=== PATIENT | female | born 1980 | race Caucasian/White ===

== ENCOUNTER 2024-05-03 07:04 | Emergency (ER) | payer BC, OTHER ==
[~2024-05-03] VITALS: Ht 170.2 cm; Wt 91.0 kg
[2024-05-03 07:38] VITALS: BP 117/83; PULSE 113; RESP 16; TEMP 98.4; O2SAT 97
[2024-05-03] MEDS: SODIUM CHLORIDE 0.9% 1,000 ML IV ONE (08:12)
[2024-05-03 08:22] LABS: Urine Bacteria FEW /hpf (None Seen); Urine Blood TRACE /uL (Negative); Urine Clarity Turbid (Clear); Urine Color Yellow (Yellow); Urine Mucus FEW (None Seen); Urine Protein, UAD 1+ (Negative); Urine Specific Gravity 1.029 (1.001-1.035); Urine Urobilinogen 2 mg/dL (Negative); Urine WBC 11 /hpf (0 - 5)
[2024-05-03] MEDS: KETOROLAC TROMETH 30 MG/ML 1ML VIAL IV ONE (09:03)
[2024-05-03] MEDS: cefTRIAXone 1GM/50ML D5W 50 ML IV ONE (09:03)
[2024-05-03 09:05] LABS: Chloride 111 mmol/L (98-107); Potassium 3.8 mmol/L (3.5-5.1); Sodium 139 mmol/L (136-145)
[2024-05-03 09:06] LABS: Anion Gap 7 (5-15); Basophils # (auto) 0 10 ^3/uL (0-0.2); Basophils % (auto) 0.3 % (0.0-2.0); Calcium 8.4 mg/dL (8.7-10.4); Carbon Dioxide 21 mmol/L (20-30); Eosinophils # (auto) 0 10 ^3/uL (0-0.8); Eosinophils % (auto) 0.2 % (0.0-7.0); Hematocrit 40.9 % (36.0-46.0); Lymphocytes # (auto) 0.9 10 ^3/uL (0.4-5.4); Mean Corpuscular Hemoglobin 32.3 pg (28.0-32.0); Mean Corpuscular Hgb Conc. 34.2 g/dL (32.0-36.0); Mean Corpuscular Volume 94.4 fL (80.0-100.0); Monocytes # (auto) 0.4 10 ^3/uL (0-1.3); Monocytes % (auto) 6.4 % (0.0-12.0); Neutrophils # (auto) 5.5 10 ^3/uL (1.6-8.6); Neutrophils % (auto) 80.1 % (37.0-80.0); Platelet Count (auto) 205 10^3/uL (140-450); Red Blood Cells 4.33 10^6/uL (4.0-5.20); Red Cell Distribution Width 14.3 % (11.8-14.3); White Blood Cell 6.9 10^3/uL (4.4-10.8)
[2024-05-03 09:11] LABS: BUN/Creatinine Ratio 13.7 (10.0-20.0); Blood Urea Nitrogen 10 mg/dL (9-23); Glucose 86 mg/dL (74-106)
[2024-05-03] MEDS ORDERED: TRAM-626 PO (09:35)
[2024-05-03] MEDS ORDERED: TAMS-35 PO (09:35)
[2024-05-03] MEDS ORDERED: ZOFR4T PO (09:35)
== END 2024-05-03 09:34 | disposition home or self-care (01) ==
LOC: EEVIPCON 07:04 → ER 07:04
DX: K80.20 Calculus of gallbladder without cholecystitis without obstruction (principal); N20.0 Calculus of kidney; N39.0 Urinary tract infection, site not specified; Z79.899 Other long term (current) drug therapy
CPT/HCPCS: 36415; 74176; 80048; 81001; 81025; 85025; 96361; 96365; 96375; 99285; J0696; J1885; J7030

== ENCOUNTER 2024-05-07 10:35 | Inpatient (IN) | payer BC ==
[~2024-05-07] VITALS: Ht 170.2 cm; Wt 95.2 kg
[~2024-05-07 10:35] MED LIST: TAMS-35 PO; TRAM-626 PO; ZOFR4T PO
[2024-05-07] MEDS: ONDANSETRON HCL 4 MG/2 ML VIAL IV ONE (11:17)
[2024-05-07] MEDS: SODIUM CHLORIDE 0.9% 1,000 ML IVB ONE (11:18)
[2024-05-07 11:30] VITALS: PULSE 82; RESP 16; O2SAT 100
[2024-05-07 12:14] LABS: Basophils # (auto) 0.1 10 ^3/uL (0-0.2); Basophils % (auto) 0.8 % (0.0-2.0); Eosinophils # (auto) 0.1 10 ^3/uL (0-0.8); Eosinophils % (auto) 0.8 % (0.0-7.0); Hematocrit 44.4 % (36.0-46.0); Hemoglobin 15.5 g/dL (12.2-16.2); Lymphocytes # (auto) 3.2 10 ^3/uL (0.4-5.4); Lymphocytes % (auto) 37.3 % (10.0-50.0); Mean Corpuscular Hemoglobin 31.7 pg (28.0-32.0); Mean Corpuscular Hgb Conc. 34.8 g/dL (32.0-36.0); Mean Corpuscular Volume 90.9 fL (80.0-100.0); Monocytes # (auto) 0.7 10 ^3/uL (0-1.3); Monocytes % (auto) 8.4 % (0.0-12.0); Neutrophils # (auto) 4.6 10 ^3/uL (1.6-8.6); Neutrophils % (auto) 52.7 % (37.0-80.0); Nucleated Red Blood Cells % 0.1 %; Platelet Count (auto) 259 10^3/uL (140-450); Red Blood Cells 4.89 10^6/uL (4.0-5.20); Red Cell Distribution Width 14.2 % (11.8-14.3); White Blood Cell 8.7 10^3/uL (4.4-10.8)
[2024-05-07] MEDS: PANTOPRAZOLE 40 MG/10 ML VIAL INJ IV ONE (12:30)
[2024-05-07] MEDS: MORPHINE SULFATE 4 MG/ML SYR/VIAL IV ONE (12:30)
[2024-05-07 12:31] LABS: Alanine Aminotransferase 18 U/L (7-40); Alkaline Phosphatase 64 U/L (46-116); Anion Gap 7 (5-15); Aspartate Aminotransferase 28 U/L (13-40); BUN/Creatinine Ratio 9.2 (10.0-20.0); Blood Urea Nitrogen 8 mg/dL (9-23); Calcium 9.2 mg/dL (8.7-10.4); Carbon Dioxide 23 mmol/L (20-30); Chloride 108 mmol/L (98-107); Glucose 77 mg/dL (74-106); Lipase 59 U/L (12-53); Potassium 3.6 mmol/L (3.5-5.1); Sodium 138 mmol/L (136-145)
[2024-05-07 12:32] LABS: Bilirubin, Total 0.4 mg/dL (0.2-1.0); Total Protein 8.2 g/dL (5.7-8.2)
[2024-05-07 12:34] LABS: Albumin 4.9 g/dL (3.2-4.8)
[2024-05-07 12:39] LABS: Platelet Estimate Adequate
[2024-05-07 13:31] LABS: Urine Bacteria FEW /hpf (None Seen); Urine Blood 1+ /uL (Negative); Urine Clarity Turbid (Clear); Urine Color Colorless (Yellow); Urine Protein, UAD Negative (Negative); Urine Specific Gravity 1.006 (1.001-1.035); Urine Urobilinogen Normal (Negative); Urine WBC 3 /hpf (0 - 5)
[2024-05-07] MEDS: KETOROLAC TROMETH 30 MG/ML 1ML VIAL IV ONE (15:06)
[2024-05-07] MEDS ORDERED: NITROGLYCERIN 0.4 MG SL TAB SL PRN (16:45)
[2024-05-07] MEDS: PIPERACILLIN-TAZOB 3.375GM 100 ML IV ONE (16:58)
[2024-05-07] MEDS: SODIUM CHLORIDE 0.9% 1,000 ML IV SCH (16:58)
[2024-05-07] MEDS: MORPHINE SULFATE INJ 2 MG/ml SYRG IV PRN (17:57)
[2024-05-07 18:02] LABS: INR 1.04 (0.9-1.15)
[2024-05-07 18:46] VITALS: BP 160/92; PULSE 69; RESP 17; TEMP 98.1; O2SAT 100
[2024-05-07 19:04] VITALS: BP 160/92; PULSE 85; RESP 17; TEMP 98.5; O2SAT 100
[2024-05-07 19:07] VITALS: BP 144/74; PULSE 73; PULSE 77; RESP 18; TEMP 98.5; O2SAT 100
[2024-05-07 20:00] VITALS: PULSE 73; RESP 18
[2024-05-07 21:00] VITALS: BP 148/89; PULSE 78; RESP 16; TEMP 97.8; O2SAT 98
[2024-05-08] VITALS (8 sets, daily range): BP systolic 107–143; BP diastolic 68–81; PULSE 73–91; RESP 14–21; TEMP 97.3–98.8; O2SAT 96–100
[2024-05-08] MEDS: PIPERACILLIN-TAZOB 3.375GM 100 ML IV SCH (00:25)
[2024-05-08] MEDS: HYDROmorphone HCL 2 MG/ML VL/or syr IV PRN (01:08)
[2024-05-08 05:47] LABS: Basophils # (auto) 0 10 ^3/uL (0-0.2); Basophils % (auto) 0.4 % (0.0-2.0); Eosinophils # (auto) 0.1 10 ^3/uL (0-0.8); Eosinophils % (auto) 1.5 % (0.0-7.0); Hematocrit 37.4 % (36.0-46.0); Hemoglobin 12.9 g/dL (12.2-16.2); Lymphocytes # (auto) 2.8 10 ^3/uL (0.4-5.4); Lymphocytes % (auto) 41.2 % (10.0-50.0); Mean Corpuscular Hemoglobin 31.5 pg (28.0-32.0); Mean Corpuscular Hgb Conc. 34.5 g/dL (32.0-36.0); Mean Corpuscular Volume 91.3 fL (80.0-100.0); Monocytes # (auto) 0.6 10 ^3/uL (0-1.3); Monocytes % (auto) 8.5 % (0.0-12.0); Neutrophils # (auto) 3.3 10 ^3/uL (1.6-8.6); Neutrophils % (auto) 48.4 % (37.0-80.0); Platelet Count (auto) 238 10^3/uL (140-450); Red Cell Distribution Width 13.9 % (11.8-14.3); White Blood Cell 6.9 10^3/uL (4.4-10.8)
[2024-05-08 06:00] LABS: Alanine Aminotransferase 16 U/L (7-40); Albumin 3.8 g/dL (3.2-4.8); Alkaline Phosphatase 45 U/L (46-116); Anion Gap 6 (5-15); Aspartate Aminotransferase 19 U/L (13-40); BUN/Creatinine Ratio 9.2 (10.0-20.0); Blood Urea Nitrogen 7 mg/dL (9-23); Calcium 8.8 mg/dL (8.7-10.4); Carbon Dioxide 24 mmol/L (20-30); Chloride 107 mmol/L (98-107); Glucose 82 mg/dL (74-106); Potassium 3.5 mmol/L (3.5-5.1); Sodium 137 mmol/L (136-145)
[2024-05-08 06:01] LABS: Bilirubin, Total 0.6 mg/dL (0.2-1.0); Total Protein 6.5 g/dL (5.7-8.2)
[2024-05-08] MEDS: ONDANSETRON HCL 4 MG/2 ML VIAL IV PRN (08:37)
[2024-05-08 09:37] LABS: Hepatitis B Surface Antigen Negative (Negative)
[2024-05-08 09:58] LABS: Hepatitis C Antibody Negative (Negative)
[2024-05-08 11:19] LABS: Free T3 3.4 pg/mL (2.3-4.2); Free T4 (Free Thyroxine) 1.18 ng/dL (0.89-1.76)
[2024-05-08] MEDS: PANTOPRAZOLE 40 MG/10 ML VIAL INJ IV ONE (12:34)
[2024-05-08] MEDS: LACTATED RINGER'S 1,000 ML IV SCH (17:00)
[2024-05-08] MEDS: CYANOCOBALAMIN (B-12) 1000 MCG/1 ML VIAL IM ONE (17:01)
[2024-05-08] MEDS: ERGOCALCIFEROL 50,000 UNIT(1.25MG) CAP PO SCH (17:01)
[2024-05-09] VITALS (8 sets, daily range): BP systolic 115–135; BP diastolic 73–84; PULSE 78–93; RESP 17–20; TEMP 97.9–98.7; O2SAT 95–98
[2024-05-09 04:28] LABS: Amphetamine Screen, Urine Neg (NEGATIVE); Barbiturate Scree,Urine Neg (NEGATIVE); Benzodiazephine Screen, Urine Neg (NEGATIVE); Cocaine Screen, Urine Neg (NEGATIVE); Opiate Scree,Urine Pos (NEGATIVE)
[2024-05-09 04:29] LABS: Cannabinoid Screen, Urine Neg (NEGATIVE); Phencyclidine Screen, Urine Neg (NEGATIVE)
[2024-05-09 06:29] LABS: Basophils # (auto) 0 10 ^3/uL (0-0.2); Basophils % (auto) 0.6 % (0.0-2.0); Eosinophils # (auto) 0.1 10 ^3/uL (0-0.8); Eosinophils % (auto) 2.2 % (0.0-7.0); Hematocrit 36.4 % (36.0-46.0); Hemoglobin 13.1 g/dL (12.2-16.2); Lymphocytes # (auto) 2.7 10 ^3/uL (0.4-5.4); Lymphocytes % (auto) 40.6 % (10.0-50.0); Mean Corpuscular Hemoglobin 32.5 pg (28.0-32.0); Mean Corpuscular Hgb Conc. 35.9 g/dL (32.0-36.0); Mean Corpuscular Volume 90.8 fL (80.0-100.0); Monocytes # (auto) 0.6 10 ^3/uL (0-1.3); Monocytes % (auto) 9.7 % (0.0-12.0); Neutrophils # (auto) 3.1 10 ^3/uL (1.6-8.6); Neutrophils % (auto) 46.9 % (37.0-80.0); Nucleated Red Blood Cells % 0.3 %; Platelet Count (auto) 253 10^3/uL (140-450); Red Blood Cells 4.02 10^6/uL (4.0-5.20); Red Cell Distribution Width 13.7 % (11.8-14.3); White Blood Cell 6.6 10^3/uL (4.4-10.8)
[2024-05-09 06:51] LABS: Chloride 107 mmol/L (98-107); Sodium 138 mmol/L (136-145)
[2024-05-09 06:52] LABS: Anion Gap 6 (5-15); Calcium 9.2 mg/dL (8.7-10.4); Carbon Dioxide 25 mmol/L (20-30)
[2024-05-09 06:57] LABS: Glucose 92 mg/dL (74-106)
[2024-05-09 06:59] LABS: BUN/Creatinine Ratio 5.9 (10.0-20.0); Blood Urea Nitrogen < 5 mg/dL (9-23)
[2024-05-09] MEDS: PANTOPRAZOLE 40 MG/10 ML VIAL INJ IV SCH (10:27)
[2024-05-09] MEDS: LACTULOSE 20Gm/30ML SOLN PO SCH (10:57)
[2024-05-09] MEDS: cefTRIAXone 1GM/50ML D5W 50 ML IV ONE (12:15)
[2024-05-10] VITALS (8 sets, daily range): BP systolic 110–129; BP diastolic 72–81; PULSE 75–85; RESP 16–18; TEMP 98.2–98.8; O2SAT 94–97
[2024-05-10 06:25] LABS: Basophils # (auto) 0.1 10 ^3/uL (0-0.2); Basophils % (auto) 0.6 % (0.0-2.0); Eosinophils # (auto) 0.1 10 ^3/uL (0-0.8); Eosinophils % (auto) 1.3 % (0.0-7.0); Hematocrit 39.7 % (36.0-46.0); Lymphocytes # (auto) 3.8 10 ^3/uL (0.4-5.4); Lymphocytes % (auto) 42.9 % (10.0-50.0); Mean Corpuscular Hemoglobin 32.2 pg (28.0-32.0); Mean Corpuscular Hgb Conc. 35.3 g/dL (32.0-36.0); Mean Corpuscular Volume 91.2 fL (80.0-100.0); Monocytes # (auto) 0.7 10 ^3/uL (0-1.3); Monocytes % (auto) 7.3 % (0.0-12.0); Neutrophils # (auto) 4.3 10 ^3/uL (1.6-8.6); Neutrophils % (auto) 47.9 % (37.0-80.0); Nucleated Red Blood Cells % 0.2 %; Platelet Count (auto) 295 10^3/uL (140-450); Red Blood Cells 4.35 10^6/uL (4.0-5.20); White Blood Cell 8.9 10^3/uL (4.4-10.8)
[2024-05-10 06:27] LABS: Anion Gap 7 (5-15); Carbon Dioxide 22 mmol/L (20-30); Chloride 109 mmol/L (98-107); Potassium 3.8 mmol/L (3.5-5.1); Sodium 138 mmol/L (136-145)
[2024-05-10 06:28] LABS: Calcium 9.6 mg/dL (8.7-10.4)
[2024-05-10 06:33] LABS: Glucose 88 mg/dL (74-106)
[2024-05-10 06:34] LABS: BUN/Creatinine Ratio 6.3 (10.0-20.0); Blood Urea Nitrogen < 5 mg/dL (9-23)
[2024-05-10] MEDS ORDERED: fentaNYL CITRATE 100 MCG/2 ML VL ONE (08:14)
[2024-05-10] MEDS ORDERED: MEPERIDINE HCL (25 MG/ML) 1ML VIAL ONE (08:14)
[2024-05-10] MEDS ORDERED: MIDAZOLAM HCL 2MG/2ML 2ml VIAL (1mg/ml) ONE (08:14)
[2024-05-10] MEDS ORDERED: PROPOFOL 10 MG/ML 20 ML IV ONE (08:15)
[2024-05-10] MEDS ORDERED: DexAMETHasone SOD PHOS 10MG/1ML VIAL INJ ONE (08:15)
[2024-05-10] MEDS ORDERED: hydrALAZINE HCL 20 MG/ML VL IV PRN (08:45)
[2024-05-10] MEDS ORDERED: MORPHINE SULFATE 4 MG/ML SYR/VIAL IV PRN (08:45)
[2024-05-10] MEDS ORDERED: ePHEDrine SULFATE 50 MG/ML AMP IV PRN (08:45)
[2024-05-10] MEDS ORDERED: MIDAZOLAM HCL 2MG/2ML 2ml VIAL (1mg/ml) IV PRN (08:45)
[2024-05-10] MEDS: LIDOCAINE W/ EPINEPHRINE 1% 20ML VIAL ONE (09:06)
[2024-05-10] MEDS ORDERED: SUGAMMADEX 200mg/2ml Vial (100MG/ML) IV ONE (09:12)
[2024-05-10] MEDS: HYDROmorphone HCL 2 MG/ML VL/or syr IV PRN (09:37)
[2024-05-10] MEDS: SUCCINYLCHOLINE CHLORIDE 20 MG/ML 10ML VIAL IV ONE (09:43)
[2024-05-10] MEDS: BUPIVACAINE 0.25% INJ 50ML VIAL ONE (09:44)
[2024-05-10] MEDS: ceFAZolin 2 GM/D5W50ml 50 ML IV ONE (09:44)
[2024-05-10] MEDS: cefTRIAXone 1GM/50ML D5W 50 ML IV SCH (12:08)
[2024-05-10] MEDS: KETOROLAC TROMETH 30 MG/ML 1ML VIAL IV ONE (12:08)
[2024-05-10] MEDS: ONDANSETRON HCL 4 MG/2 ML VIAL IV ONE (12:30)
[2024-05-10] MEDS: metroNIDAZOLE 500MG/100ML 100 ML IV SCH (14:56)
[2024-05-11 01:00] VITALS: BP 116/71; PULSE 85; RESP 15; TEMP 98.4; O2SAT 95
[2024-05-11 05:00] VITALS: BP 113/68; PULSE 89; RESP 18; TEMP 98.2; O2SAT 97
[2024-05-11] MEDS: DOCUSATE SOD 100 MG CAP PO PRN (05:23)
[2024-05-11 08:59] VITALS: BP 98/55; PULSE 87; RESP 19; TEMP 98; O2SAT 100
[2024-05-11 09:25] LABS: Basophils # (auto) 0 10 ^3/uL (0-0.2); Basophils % (auto) 0.4 % (0.0-2.0); Eosinophils # (auto) 0 10 ^3/uL (0-0.8); Eosinophils % (auto) 0.1 % (0.0-7.0); Hematocrit 41.3 % (36.0-46.0); Hemoglobin 14.2 g/dL (12.2-16.2); Lymphocytes # (auto) 3.1 10 ^3/uL (0.4-5.4); Lymphocytes % (auto) 25.1 % (10.0-50.0); Mean Corpuscular Hemoglobin 31.5 pg (28.0-32.0); Mean Corpuscular Hgb Conc. 34.4 g/dL (32.0-36.0); Mean Corpuscular Volume 91.6 fL (80.0-100.0); Monocytes # (auto) 0.8 10 ^3/uL (0-1.3); Monocytes % (auto) 6.1 % (0.0-12.0); Neutrophils # (auto) 8.6 10 ^3/uL (1.6-8.6); Neutrophils % (auto) 68.3 % (37.0-80.0); Platelet Count (auto) 341 10^3/uL (140-450); Red Blood Cells 4.51 10^6/uL (4.0-5.20); Red Cell Distribution Width 13.7 % (11.8-14.3); White Blood Cell 12.6 10^3/uL (4.4-10.8)
[2024-05-11 09:30] LABS: Chloride 105 mmol/L (98-107); Potassium 3.5 mmol/L (3.5-5.1); Sodium 137 mmol/L (136-145)
[2024-05-11 09:31] LABS: Anion Gap 7 (5-15); Carbon Dioxide 25 mmol/L (20-30)
[2024-05-11 09:32] LABS: Calcium 9.8 mg/dL (8.7-10.4)
[2024-05-11 09:36] LABS: BUN/Creatinine Ratio 6.9 (10.0-20.0); Blood Urea Nitrogen 6 mg/dL (9-23); Glucose 97 mg/dL (74-106)
[2024-05-11 09:39] LABS: Bilirubin, Total 0.6 mg/dL (0.2-1.0)
[2024-05-11] MEDS ORDERED: ACETAMINOPHEN 325 MG TAB PO PRN (10:15)
[2024-05-11] MEDS: POTASSIUM CHL 20 Meq TABLET PO ONE (12:10)
[2024-05-11 13:00] VITALS: BP 115/72; PULSE 78; RESP 17; TEMP 98.2; O2SAT 98
[2024-05-11] MEDS ORDERED: ACET-1882 PO (14:13)
[2024-05-11] MEDS ORDERED: ERGO1CAP23 PO (14:13)
[2024-05-11] MEDS ORDERED: MET500T PO (14:13)
[2024-05-11 17:00] VITALS: BP 123/82; PULSE 86; RESP 18; TEMP 98; O2SAT 99
[2024-05-11] MEDS ORDERED: ROCURONIUM 10MG/ML 10ML VIAL IV ONE (17:29)
== END 2024-05-11 17:30 | disposition home or self-care (01) | DRG 418 ==
LOC: EEVIPCON 10:35 → ER 10:35 → OVERFLOW 16:38 → TELE-EAST 18:33 → EAST 20:39
PROVIDERS: ADMIT Internal Medicine Pulmonary Disease; ATTEND Internal Medicine Pulmonary Disease
PROC: 0FT44ZZ Resection of Gallbladder, Percutaneous Endoscopic Approach (ICD-10-PCS; principal; 2024-05-10 08:18)
DX: K80.10 Calculus of gallbladder with chronic cholecystitis without obstruction (principal); N10 Acute pyelonephritis; N20.0 Calculus of kidney; K57.30 Diverticulosis of large intestine without perforation or abscess without bleeding; E07.81 Sick-euthyroid syndrome; E66.01 Morbid (severe) obesity due to excess calories; E03.8 Other specified hypothyroidism; Z68.32 Body mass index [BMI] 32.0-32.9, adult; Z82.49 Family history of ischemic heart disease and other diseases of the circulatory system; Z83.3 Family history of diabetes mellitus; Z88.8 Allergy status to other drugs, medicaments and biological substances
CPT/HCPCS: 36415; 71045; 74181; 76705; 80048; 80053; 80307; 81001; 82247; 82306; 82607; 83036; 83690; 83735; 84439; 84443; 84481; 84702; 85025; 85610; 86803; 86850; 86900; 86901; 87086; 87340; 96374; 96375; G0378; J0330; J1100; J1885; J2250; J2405; J2470; J2543; J2704; J3490

== ENCOUNTER 2025-01-31 12:51 | Emergency (ER) | payer BC ==
[~2025-01-31] VITALS: Ht 170.2 cm; Wt 70.0 kg
[~2025-01-31 12:51] MED LIST changes: +ACET-1882 PO; +ERGO1CAP23 PO; +MET500T PO
--- NOTE | 2025-01-31 13:28 | ED.PDOC ---
GI ASSESSMENT HPI Comments A 44 year old female with no past medical history presents to the ED with a chief complaint of diarrhea onset today (01/31/25). Patient states she began experienced generalized body aches last night as well as nasal congestion, took Tylenol around 20:00. She woke up this morning experiencing nausea, is now resolved, and diarrhea, last bowel movement was about 20 minutes ago. Patient's co-workers have also been experiencing similar symptoms. No other symptoms or modifying factors present at this time. Denies recent antibiotics nor hospitalization Denies blood or black stools Denies fevers chills night sweats Denies cough Denies rashes Denies abdominal pain vomiting Denies recent travel Denies dysuria, hematuria Urinating normally Chief Complaint: Flu like Time Seen by MD: 13:10 Primary Care Provider: Deana MILLER Reviewed Notes: Nurses Notes, Medications, Allergies Allergies: Coded Allergies: Tamsulosin (Verified Allergy, Unknown, 05/07/24) ITCHY, FEEL WEIRD Home Meds Active Scripts Acetaminophen (Acetaminophen) 500 Mg Tab, 500 MG PO Q6HP PRN for 10 Days, #40 TAB 0 Refills Prov:PUJA WATSON LABOR SUPERVISOR 01/31/25 Ondansetron HCl (Ondansetron) 4 Mg Tab, 4 MG PO Q8HP PRN for 3 Days, #9 TAB 0 Refills Prov:PUJA WATSON LABOR SUPERVISOR 01/31/25 Loperamide HCl (Loperamide HCl) 2 Mg Tab, 2 MG PO UD for 5 Days, #21 TAB 0 Refills Prov:PUJA WATSON LABOR SUPERVISOR 01/31/25 Metronidazole (Metronidazole) 500 Mg Tab, 500 MG PO TID for 3 Days, #9 TAB Prov:ALISON RIOJAS RESIDENT 05/11/24 Ergocalciferol (VITAMIN D 06475 UNIT) 50,000 [place], [address] UNIT PO Q7D for 30 Days, #10 CAP Prov:ALISON RIOJAS RESIDENT 05/11/24 Acetaminophen (Acetaminophen) 325 Mg Tab, 325 MG PO Q4HP PRN for 10 Days, #50 TAB Prov:ALISON RIOJAS RESIDENT 05/11/24 Ondansetron Odt 4MG Tab (ZOFRAN PO) 4 Mg Tb, 4 MG PO BID, #20 TAB ODT TAB-DISSOLVE IN MOUTH, THEN SWALLOW Prov:HAYDER ZAMUDIO 05/03/24 Tramadol HCl (Tramadol HCl) 50 Mg Tab, 50 MG PO TID, #30 TAB Prov:GIGI ZAMUDIOOrlando SHETH 05/03/24 Tamsulosin Hcl (Flomax) 0.4 Mg Cap, 1 CAP PO DAILY, #30 CAP Prov:HAYDER ZAMUDIO MERYL 05/03/24 Information Source: Patient Mode of Arrival: Ambulatory Timing: Days Duration: Since onset Prehospital treatment: Pain Meds (Tylenol) Stool: Watery Severity: Moderate Recent: None Recent Hx of: None Pain Location: None Modifying Factors: Nothing Associated sign and symptoms: Nausea, Diarrhea, Other (body aches ) Past Medical History PAST MEDICAL HISTORY: Denies Surgical History: Cholecystectomy DISEASE EDUCATION SPECIALIST History: Denies all DISEASE EDUCATION SPECIALIST Hx Family History Family History: Reviewed,noncontributory to illness Social History Smoker: Non-Smoker Alcohol: Occasionally Drugs: Denies Drug Use Lives In: Home All Other Systems: Reviewed and Negative (as per HPI) Physical Exam General Appearance: No Apparent Distress, Normal HEENT: Normal ENT Inspection, Pharynx Normal, TMs Normal Neck: Full Range of Motion, Non-Tender, Normal, Normal Inspection Respiratory: Chest Non-Tender, Lungs Clear, No Accessory Muscle Use, No Respiratory Distress, Normal Breath Sounds Cardiovascular: No Edema, No JVD, No Murmur, No Gallop, Normal Peripheral Pulses, Regular Rate/Rhythm Breast Exam: Deferred Gastrointestinal: No Organomegaly, Non Tender, No Pulsatile Mass, Normal Bowel Sounds, Soft Genitalia: Deferred Pelvic: Deferred Rectal: Deferred Extremities: No calf tenderness, Normal capillary refill, Normal inspection, Normal range of motion, Non-tender, No pedal edema Musculoskeletal : Apperance: Normal Neurologic: Alert, tanker service attendant II-XII nml as Tested, No Motor Deficits, Normal Affect, Normal Mood, No Sensory Deficits Cerebellar Function: Normal Reflexes: Normal Skin: Dry, Normal Color, Warm Lymphatic: No Adenopathy Was a procedure done? Was a procedure done?: No GI differential Dx Differential Diagnosis: Gastroenteritis, Food Poisoning, Viral X-Ray, Labs, Meds, VS Vital Signs Date Time Temp Pulse Resp B/P (MAP) Pulse Ox O2 Delivery O2 Flow Rate FiO2 01/31/25 14:55 98.7 01/31/25 14:00 99.3 72 14 116/72 (87) 98 99.3 01/31/25 14:00 72 14 98 Room Air 01/31/25 13:55 99.3 01/31/25 12:54 99.2 90 16 118/82 (94) 98 99.2 X-Ray, Labs, Meds, VS Comment A 44 year old female with no past medical history presents to the ED with a chief complaint of diarrhea onset today (01/31/25). Patient arrives alert and oriented, ABC's intact, afebrile, vital signs stable, saturating well in room air Patient presents with abdominal pain, nausea, vomiting, diarrhea, myalgia, intermittent fevers. The cause of the patients symptoms is not clear but based on history the symptoms are likely due to either food poisoning or viral gastrointestinal infection. I also considered enteropathic gastroenteritis, but the patient has not had any bloody stools. Traveler's diarrhea but the patient has not traveled recently. Low suspicion for appendicitis as the patient is well-appearing without any tenderness or pain to the abdomen. Similarly, low suspicion for intussusception as the patient did not have any intermittent abdominal pain nor did they have any bloody bowel movements. Other differentials considered but not limited to, small bowel obstruction, coronary syndrome, bowel ischemia, DKA, pancreatitis, sepsis/serious bacterial illness. Suspect likely transient course of illness. Presumed self-limited etiology, provided oral rehydration education. Plan discharge home with prompt primary care physician follow up in the next 48 hours. Return precautions discussed. Patient was given: Zofran 4 mg PO, Toradol 30 mg IM, Acetaminophen 650 mg PO, Lomotil 5 mg PO. Tolerated medications with no adverse reaction. Additional MDM Review of External, Non-ED records: External records reviewed. Discussion with independent historian (EMS, family) history obtained from the patient at bedside Chronic conditions affecting care: none Social determinants of health affecting care: none Consideration of admission (observation or admission): I considered escalation of care to admission for this patient, however given the reassuring workup, the patient is safe for outpatient management. Time of 1ST Reevaluation: 13:40 Reevaluation 1ST: Improved Patient Education/Counseling: Diagnosis, Treatment Family Education/Counseling: No Family Present Departure 1 Departure Time of Disposition: 14:38 Impression: Primary Impression: Gastroenteritis Additional Impression: Norovirus Disposition: 01 HOME / SELF CARE / HOMELESS Condition: Fair e-Prescriptions Acetaminophen (Acetaminophen) 500 Mg Tab 500 MG PO Q6HP PRN for 10 Days, #40 TAB 0 Refills Prov: PUJA WATSON NP 01/31/25 Ondansetron HCl (Ondansetron) 4 Mg Tab 4 MG PO Q8HP PRN for 3 Days, #9 TAB 0 Refills Prov: PUJA WATSON NP 01/31/25 Loperamide HCl (Loperamide HCl) 2 Mg Tab 2 MG PO UD for 5 Days, #21 TAB 0 Refills Prov: PUJA WATSON LABOR SUPERVISOR 01/31/25 Critical Care Note Critical Care Time?: No Stability Stability form required: No Heart Score Heart Score: Heart Score Response (Comments) Value History N/A 0 EKG N/A 0 Age N/A 0 Risk Factors N/A 0 Troponin N/A 0 Total 0 I personally scribed for PUJA WATSON NP ([email or web address]) on 01/31/25 at 13:28. Electronically submitted by Maricruz Link ([email or web address]). PUJA WATSON NP January 31, 2025 13:28
[2025-01-31] MEDS: DIPHENOXYLATE W/ATROPINE 2.5 MG TAB PO ONE (13:54)
[2025-01-31] MEDS: ACETAMINOPHEN 325 MG TAB PO ONE (13:55)
[2025-01-31] MEDS: ONDANSETRON ODT 4 MG TAB PO ONE (13:55)
[2025-01-31 14:00] VITALS: BP 116/72; PULSE 72; RESP 14; O2SAT 98
[2025-01-31] MEDS: KETOROLAC TROMETH 30 MG/ML 1ML VIAL IM ONE (14:01)
[2025-01-31] MEDS ORDERED: ACET500T58 PO (14:40)
[2025-01-31] MEDS ORDERED: LOPE1TAB9 PO (14:40)
[2025-01-31] MEDS ORDERED: ONDA-155 PO (14:40)
[2025-01-31 14:55] VITALS: TEMP 98.7
== END 2025-01-31 15:00 | disposition home or self-care (01) ==
LOC: EEVIPCON 12:54 → ER 12:54
DX: K52.9 Noninfective gastroenteritis and colitis, unspecified (principal); A08.11 Acute gastroenteropathy due to Norwalk agent; Z90.49 Acquired absence of other specified parts of digestive tract; Z79.899 Other long term (current) drug therapy; Z88.8 Allergy status to other drugs, medicaments and biological substances
CPT/HCPCS: 96372; 99284; J1885; Q0162